=== PATIENT | male | born 1985 | race Caucasian/White ===

== ENCOUNTER 2016-05-18 15:59 | Emergency (ER) | payer OTHER ==
[2016-05-18 16:26] LABS: HEMOGLOBIN 12.8 gm/dl (14.0-17.5); RED BLOOD COUNT 4.61 M/UL (4.20-5.50); WHITE BLOOD COUNT 11.1 K/UL (4.5-11.0)
[2016-05-18 17:13] LABS: BUN/CREATININE RATIO 21 (0-10)
== END 2016-05-18 18:34 | disposition home or self-care (01) ==
LOC: ER1 15:59
PROVIDERS: Emergency Medicine
DX: R07.9 Chest pain, unspecified (principal); I10 Essential (primary) hypertension; Z88.0 Allergy status to penicillin; Z88.2 Allergy status to sulfonamides
CPT/HCPCS: 36415; 71010; 80053; 82550; 82553; 83874; 84484; 85025; 85379; 93005; 99285

== ENCOUNTER → 2016-07-22 | Outpatient (CLI) | payer MEDICARE, OTHER | LOC: SLEEP 21:23 | DX: G47.33 Obstructive sleep apnea (adult) (pediatric) (principal) | CPT/HCPCS: 95810 ==